=== PATIENT | male | born 1985 | race Caucasian/White ===

== ENCOUNTER 2022-02-18 07:38 | Emergency (ER) | payer OTHER ==
[~2022-02-18 07:38] MED LIST: BACLOFEN 10MG T10 MG PO; NAPROSYN500 MG PO
[2022-02-18 07:57] LABS: BASOPHIL 0.8 % (0-2); EOSINOPHIL 1.5 % (0-5); HCT 48.2 % (42.0-52.0); HGB 16.5 g/dl (13.2-18.0); LYMPHOCYTE 37.8 % (15-48); MCH 29.4 pg (25.0-31.0); MCHC 34.2 g/dL (32.0-36.0); MCV 85.9 fL (78.0-100.0); MONOCYTE 6.5 % (0-12); MPV 9.7 fL (6.0-9.5); NRBC 0; PLT 273 K/uL (150-400); RBC 5.61 M/uL (4.70-6.00); RDW 11.7 % (11.5-14.0); WBC 11.3 K/uL (4.0-10.5)
[2022-02-18 08:12] LABS: INR 0.94 (0.9-1.2); PROTHROMBIN TIME 12.3 SECONDS (11.9-13.9)
[2022-02-18 08:13] LABS: PTT 27.5 SECONDS (24.9-34.6)
[2022-02-18 08:14] LABS: D-DIMER < 0.27 ug/mLFEU (0.00-0.41)
[2022-02-18 08:56] LABS: ALBUMIN 4.3 g/dL (3.4-5.0); ALKALINE PHOSHATASE 63 U/L (46-116); ALT 71 U/L (16-63); AST 38 U/L (15-37); BILIRUBIN - TOTAL 0.4 mg/dL (0.2-1.0); BUN 14 mg/dL (7-18); BUN/CREAT RATIO (CALC) 17.5 RATIO; CHLORIDE 101 mmol/L (98-107); CO2 (BICARBONATE) 25 mmol/L (21-32); GLOBULIN (CALCULATION) 3.9 g/dL; GLUCOSE 93 mg/dL (74-106); POTASSIUM 4.1 mmol/L (3.5-5.1); TOTAL PROTEIN 8.2 g/dL (6.4-8.2)
[2022-02-18 09:36] LABS: CORONAVIRUS 2019 SARS-COV-2 NEGATIVE (NEGATIVE); INFLUENZA A NAA NEGATIVE (NEGATIVE)
== END 2022-02-18 10:02 | disposition home or self-care (01) ==
LOC: FER 07:38
PROVIDERS: Internal Medicine
DX: R07.89 Other chest pain (principal); I10 Essential (primary) hypertension; Z79.899 Other long term (current) drug therapy; Z20.822 Contact with and (suspected) exposure to COVID-19
CPT/HCPCS: 36415; 71045; 80053; 84484; 85025; 85379; 85610; 85730; 93005; J1885; U0002